=== PATIENT | female | born 1950 | race Caucasian/White ===

== ENCOUNTER → 2017-04-26 | Day surgery (SDC) | payer MEDICARE ==
[~2017-04-26] MED LIST: ASPIRIN81 M2 PO; LIPITOR PO
--- NOTE | ~2017-04-26 | HP ---
Unit #: [id number] #: [id number] Patient: DAISHA COTTRELL [id number] [facility] [address] [facility]. [place], [place] [address] [id number] O MR#: [id number] NAME: DAISHA COTTRELL ROOM: Age: 67 Sex: F Admission Date: 04/26/2017 : 1950 Attending Physician: Aydin Salcido M.D. Referring Physician: Aydin Salcido M.D. HISTORY AND PHYSICAL CHIEF COMPLAINT Left flank pain. HISTORY OF PRESENT ILLNESS This 67-year-old woman was transferred from [facility] for a ureteral stent and arrives after hours to the [facility] Room. She presented there with left-sided flank pain which was severe and consistent with her history of kidney stones. Urinalysis showed too numerous to count red cells but no nitrites, leukocyte esterase, or other evidence of infection. She had no fever or chills. CT scan showed a 7 mm stone obstructing the left ureteropelvic junction. It also showed what appears to be air in the very dome of bladder of unclear significance. Urine culture was not done, and no antibiotics were thought indicated I learn upon transfer and laboratory is unremarkable including WBC 13, glucose 127, and normal CMP. The patient recalls ESWL and ureteroscopy in the past but no stone problems for over 10 years. She has had some increased urinary urgency over the last few months but no hematuria, dysuria, or other voiding complaints. PAST MEDICAL HISTORY Elevated cholesterol. PAST SURGICAL HISTORY Hysterectomy. MEDICATIONS Lipitor and aspirin. ALLERGIES None known. PHYSICAL EXAMINATION GENERAL: Patient is alert, comfortable, and does not appear ill. LUNGS: Clear. CARDIAC: Rate and rhythm regular. ABDOMEN: Tender in the left CVA area. EXTREMITIES: No edema. NEUROLOGIC: Intact. DIAGNOSTIC STUDIES As above. Unit #: [id number] #: [id number] Patient: DAISHA COTTRELL IMPRESSION 1. Left ureteropelvic junction stone. 2. Air in the bladder of unclear significance. PLAN Will proceed with cystoscopy and left stent placement. Dictated by Sofía Rubio/adam TD: 04/26/2017 21:32 JOB #: [id number] HISTORY AND PHYSICAL Page 1 of 1 X Aydin Salcido MD HISTORY AND PHYSICAL
--- NOTE | ~2017-04-26 | OR ---
Unit #: [id number] #: [id number] Patient: DAISHA COTTRELL [id number] [address] [place], [place] [address] [id number] O MR#: [id number] NAME: DAISHA COTTRELL ROOM: Date of Procedure: 04/26/2017 Admission Date: 04/26/2017 Surgeon: Aydin Salcido M.D. : 1950 Attending Physician: Aydin Salcido M.D. Referring Physician: Aydin Salcido M.D. OPERATIVE REPORT PREOPERATIVE DIAGNOSES Left ureteropelvic junction calculus; air in bladder. 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 PROCEDURES PERFORMED Cystoscopy with left ureteral stone manipulation and stent placement. ANESTHESIA General with local supplementation. INDICATIONS FOR PROCEDURE This 67-year-old woman, who presented to [facility] with left renal colic, presents with the unusual CT finding thought to be air in the dome of the bladder and an obstructing 7 mm UPJ stone highly symptomatic. There is no evidence of infection in the urine. DESCRIPTION OF PROCEDURE The patient was given satisfactory general anesthesia and positioned in dorsal lithotomy. The genitalia were prepped and draped. The 21-Armenian rigid cystoscope was introduced with a 30-degree lens and video. The bladder was faintly trabeculated, but otherwise normal with normal symmetric orifices until the scope was flipped up to view the dome directly. There was a small ground-glass impression in the bladder consistent with extrinsic compression and the bladder mucosa other than appearing inflamed shows no evidence of fistula or infection and no air. The CT areas clearly extrinsic to the bladder. This was photographed. A biopsy was thought likely to risk creating fistula. I placed a Pollack catheter up the left ureter and did not see the stone clearly as the catheter went easily into the kidney. A Sensor guidewire was passed and over that, a 24 x 5 double-J stent well positioned internally. The bladder was drained. The cystoscope removed and a Uro-jet applied. I then magnified the image and did see what appeared to be the stone in the upper pole of the kidney moving with respiration. This was recorded on hard copy. The patient will be scheduled for a left ESWL with cystoscopy and stent removal in 1 to 2 weeks and KUB on arrival. Unit #: [id number] #: [id number] Patient: DAISHA COTTRELL Dictated by... Sofía Rubio/tono TD: 04/27/2017 06:37 JOB #: [id number] OPERATIVE REPORT Page 1 of 1 X Aydin Salcido MD X PROCEDURE OPERATIVE NOTE
--- NOTE | ~2017-04-26 | EKG ---
PATIENT: DAISHA COTTRELL UNIT #: [id number] Ventricular Rate: 80 BPM Atrial Rate: 80 BPM P-R Interval: 136 ms QRS Duration: 76 ms Q-T Interval: 362 ms QTC Calculation(Bezet): 417 ms P Arg[place]: 44 degrees Calculated R Argyle: -14 degrees Calculated T Argyle: -15 degrees Diagnosis Line: Normal sinus rhythm Diagnosis Line: Minimal voltage criteria for LVH, may be normal Diagnosis Line: variant Diagnosis Line: Borderline ECG Diagnosis Line: No previous ECGs available Diagnosis Line: Confirmed by JA CARRASCO MD ([id number]) on Diagnosis Line: 04/27/2017 6:51:41 AM INTERPRETING MD: KINZA
== END | disposition home or self-care (01) ==
LOC: CSUR 16:27
DX: N20.1 Calculus of ureter (principal); N32.89 Other specified disorders of bladder
CPT/HCPCS: 93005; C2617; J0690; J1100; J2250; J2370; J2405; J3010